=== PATIENT | male | born 1990 | race Caucasian/White ===

== ENCOUNTER 2024-05-01 17:45 | Emergency (ER) | payer SELFPAY ==
[2024-05-01 17:48] VITALS: BP 173/104
--- NOTE | 2024-05-01 17:48 | ED.SKININJ ---
HPI-Injury
<Jim Diana PA-C - Last Filed: 05/01/24 17:52>
General
Chief Complaint: Bite
Time Seen by Provider: 05/01/24 18:58
<Eron Plaza PA-C - Last Filed: 05/01/24 22:05>
History of Present Illness-Injury
Initial Injury comments:
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 Last tetanus is unknown. The dog is reportedly up-to-date on vaccinations
ED Provider Triage
<Jim Diana PA-C - Last Filed: 05/01/24 17:52>
-
Patient seen by provider in Triage?: Seen in Triage
Attestation: A medical screening examination has been initiated by a qualified medical provider. Based on the assessment performed at this time, it has been determined that an emergent medical condition may exist and the patient has been informed
that further medical evaluation and possible additional diagnostic testing may be needed.
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 Tetanus is UTD. Believes dog is UTD on vaccines. Motrin for pain ordered.
GENERAL: Alert , very uncomfortable. Anxious
EYE: No visual abnormalities.
NECK: Trachea midline
ENT: No visible abnormalities.
LUNGS: No acute respiratory distress
NEUROLOGICAL: Alert and oriented
SKIN: Skin intact. No visible changes.
MUSCULOSKELETAL: Moving extremities normally
PSYCH: Normal and appropriate interaction.
This is a medical evaluation conducted in person to initiate diagnostic evaluation and provide initial therapeutics. Please see further documentation by the treating clinician.
Review of Systems
<Eron Plaza PA-C - Last Filed: 05/01/24 22:05>
Review of Systems
Allergies reviewed?: Yes
All Other Systems: ROS reviewed and negative except as documented in HPI and ROS
Phy Exam
<Eron Plaza PA-C - Last Filed: 05/01/24 22:05>
Physical Exam
Physical Exam:
GEN: Well appearing, NAD, WDWN
HEENT: Oral mucosa moist, no scleral icterus
Cardiac: Regular rate
Lung: No respiratory distress, no tachypnea
MSK: No gross deformity or injuries
: Small abrasion to the shaft of the penis however no penile edema or ecchymosis, no blood at the urethral meatus. There is a 2 cm stellate wound to the left anterior hemiscrotum partial-thickness does not violate the testicular cavity, no
hematomas
Skin: Good color, no pallor or jaundice, no rashes
Neuro: AO x3, moves all extremities freely
Psych: Calm, cooperative
Course
<Jim Diana PA-C - Last Filed: 05/01/24 17:52>
Orders/Labs/Results
Orders:
Orders
05/01/24 17:50
Ibuprofen [Motrin] 600 mg PO NOW STA
05/01/24 17:54
Ibuprofen [Motrin] 600 mg .ROUTE .STK-MED ONE
05/01/24 19:06
Lidocaine/Epinephrine/Tetracai [Let Topical Anesthetic Gel] 3 ml TOPICAL NOW STA
05/01/24 20:16
Amoxicillin 875 mg/Clav 125 mg [Augmentin 875 mg/125 mg] 1 tablet PO NOW STA
Tetanus/Diphth/Acelpertussis [Adacel] 0.5 ml IM .ONCE ONE
05/01/24 20:33
Urinalysis Urgent
Date Specimen was Collected: 05/01/24
Time Specimen was Collected: 20:29
Vital Signs
Initial and Last Documented VS:
Initial Vital Signs
Temp Pulse Resp BP Pulse Ox
98.2 F 109 20 173/104 99
05/01/24 17:48 05/01/24 17:48 05/01/24 17:48 05/01/24 17:48 05/01/24 17:48
Last Documented Vital Signs
Temp Pulse Resp BP Pulse Ox
98.2 F 109 20 173/104 99
05/01/24 17:48 05/01/24 17:48 05/01/24 17:48 05/01/24 17:48 05/01/24 17:48
<Eron Plaza PA-C - Last Filed: 05/01/24 22:05>
Orders/Labs/Results
Orders:
Orders
05/01/24 17:50
Ibuprofen [Motrin] 600 mg PO NOW STA
05/01/24 17:54
Ibuprofen [Motrin] 600 mg .ROUTE .STK-MED ONE
05/01/24 19:06
Lidocaine/Epinephrine/Tetracai [Let Topical Anesthetic Gel] 3 ml TOPICAL NOW STA
05/01/24 20:16
Amoxicillin 875 mg/Clav 125 mg [Augmentin 875 mg/125 mg] 1 tablet PO NOW STA
Tetanus/Diphth/Acelpertussis [Adacel] 0.5 ml IM .ONCE ONE
05/01/24 20:33
Urinalysis Urgent
Date Specimen was Collected: 05/01/24
Time Specimen was Collected: 20:29
Vital Signs
Initial and Last Documented VS:
Initial Vital Signs
Temp Pulse Resp BP Pulse Ox
98.2 F 109 20 173/104 99
05/01/24 17:48 05/01/24 17:48 05/01/24 17:48 05/01/24 17:48 05/01/24 17:48
Last Documented Vital Signs
Temp Pulse Resp BP Pulse Ox
98.2 F 109 20 173/104 99
05/01/24 17:48 05/01/24 17:48 05/01/24 17:48 05/01/24 17:48 05/01/24 17:48
Procedures
<Eron Plaza PA-C - Last Filed: 05/01/24 22:05>
Laceration Closure
Left Scrotum:
Status of Wound: clean
Size of Wound in cm: 2
Description of Wound Edges: sharp
Preparation: cleaned with saline
Anesthesia: 1% Lidocaine and Topical-LET
Revision/Debridement: irrigate-direct pressure (500 cc of normal saline)
Wound exploration: explored to base- no FB
Type of Closure: single layer closure
Skin Closure Material: 5-0 chromic gut
Number of sutures: 3
<Eron Plaza PA-C - Last Filed: 05/01/24 22:05>
MDM/Problems Addressed
MDM/Problems Addressed:
Wound irrigated copiously prior to discharge, will be started on prophylactic antibiotics and tetanus updated. Urinalysis without blood concerning for urethral injury. No indication for rabies prophylaxis however advised the patient to follow-up
with the dog planer setter to confirm documentation of rabies vaccinations
<Eron Plaza PA-C - Last Filed: 05/01/24 22:05>
*Critical Care Note
Total Time (30-74mins, 75-104mins- exclusive of procedures): Not Applicable
ED Attending Note
<Jim Diana PA-C - Last Filed: 05/01/24 17:52>
-
Portions of this chart may have been created with voice recognition software.� Occasional wrong word or��sound alike� substitutions may have occurred due to the inherent limitations of voice recognition software.
Discharge Plan
Departure
Patient Disposition: Home (Routine Discharge)
Date of Disposition: 05/01/24
Time of Disposition: 20:48
Patient with high blood pressure during this ER visit?: No
Discharge Problem:
Scrotal laceration, Dog Bite of Scrotum
Instructions: Laceration Repair With Stitches (DC)
Prescriptions:
New
amoxicillin-pot clavulanate 875-125 mg tablet
1 tab PO BID Qty: 10 0RF
Referrals:
NONE,* [Family Provider] -
Activity Restrictions/Additional Instructions:
Keep wound dry for the next 24 hours
Wash gently with soap and water each day thereafter
Sutures can be removed in 10 days. You can pull gently on the knot and they should fall out; if not you can return to the ER for removal
Take the antibiotics in full
Return if you develop redness, swelling and pain of the scrotum
Interventions
Interventions:
*Risk Screen - Suicide Last Done: 05/01/24 17:48
*Neglect/Abuse Screening Last Done: 05/01/24 17:48
ED- Fall Risk Assessment Last Done: 05/01/24 21:14
*Nursing Disposition Last Done: 05/01/24 21:14
ED-Skin Assessment Last Done: 05/01/24 19:04
Discharge Date and Time
Discharge Date/Time: 05/01/24 21:14
Print Language: GUAMANIAN
[2024-05-01] MEDS: MOTRIN 600 MG PO (17:55)
[2024-05-01] MEDS: LET TOPICAL ANESTHETIC GEL 3 ML TOPICAL (19:15)
[2024-05-01] MEDS: AUGMENTIN 875 MG/125 MG 1 TABLET PO (20:33)
[2024-05-01] MEDS: ADACEL 0.5 ML IM (20:34)
[2024-05-01 20:41] LABS: Urine Albumin Trace (Neg - Trace); Urine Bilirubin Negative (Negative); Urine Character Slightly Cloudy (Clear); Urine Color Yellow; Urine Glucose Negative (Negative); Urine Ketone Negative (Negative); Urine Leukocyte Negative (Negative); Urine Nitrite Negative (Negative); Urine Occult Blood Negative (Negative); Urine Urobilinogen Negative (Neg - 1+); Urine pH 6.5 (5.0-9.0)
== END 2024-05-01 21:14 | disposition home or self-care (01) ==
LOC: EMR 17:45
PROVIDERS: Physician Assistant; EMERGENCY PHYSICIAN Emergency Medicine
DX: S31.31XA Laceration without foreign body of scrotum and testes, initial encounter (principal); S30.812A Abrasion of penis, initial encounter; W54.0XXA Bitten by dog, initial encounter; Y99.0 Civilian activity done for income or pay; Z23 Encounter for immunization
CPT/HCPCS: 12001; 99283; 90471; 81003; 90715